=== PATIENT | male | born 1985 | race Caucasian/White ===

== ENCOUNTER 2016-07-13 14:58 | Emergency (ER) | payer BC ==
[2016-07-13] MEDS ORDERED: BUPIVACAINE HCL/PF 5 MG/ML 10ML VIAL IV ONE (15:06)
[2016-07-13] MEDS ORDERED: BUPIVACAINE HCL/PF 5 MG/ML 10ML VIAL IJ ONE (15:07)
--- NOTE | 2016-07-13 16:12 | ED Physician Documentation ---
Upper Extremity Injury - HISTORIAN Historian: patient - HPI Stated Complaint: crush injury to right index finger Chief Complaint: Hand Injury Additional Information: Hand caught between [place]. Last tetanus within 5 years. Onset: just prior to arrival - ROS CONST: no problems - PAST HX Past History: none, Rt handed Allergies/Adverse Reactions: Allergies Allergy/AdvReac Type Severity Reaction Status Date / Time No Known Allergies Allergy Verified 07/13/16 15:51 Home Medications: Ambulatory Orders Medication Instructions Recorded Cephalexin [Keflex] 500 mg PO Q6H #40 capsule 07/13/16 - SOCIAL HX Smoking History: non-smoker - FAMILY HX Family History: no significant history - REVIEWED ASSESSMENTS Nursing Assessment Reviewed: Yes Vitals Reviewed: Yes Procedures Wound Location: upper extremity (right 2nd fingerr) Wound Length: 2 Wound's Depth, Shape: superficial, contused tissue Wound Explored: clean Irrigated w/ Saline (ccs): 800 Betadine Prep?: No (chlorhexadine) Anesthesia: 0.5% Sensorcaine Wound Repaired With: sutures Suture Size/Type: 3:0 Number of Sutures: 3 Layer Closure?: No Sterile Dressing Applied?: Yes Splint Applied?: Yes Sling Applied?: Yes Progress - Progress Progress: 3 views of the right hand History: RT HAND, SMASH INJURY TO 2ND FINGER TODAY, AP VIEW COMPLETED IN PLACE OF A PA VIEW DUE TO PATIENTS INABILITY TO LAY HAND FLAT (Hx) / 2ND FINER PROXIMAL PHALANX INJURY Findings: No comparison studies Several artifacts are noted over the study No evidence of acute fracture or dislocation of the right hand. Laceration is noted along the radial aspect of the right 2nd digit. Surgical screws are noted at the 5th finger proximal phalynx Impression: No evidence of acute fracture or dislocation of the right hand. Laceration proximal phalynx right 2nd digit. Electronically signed on July 13, 2016 3:47:31 PM CDT by: Julia Cordova ED Results Lab/Radiology - Orders Orders: ED Orders Category Date Time Status Apply occlusive dressing D Care 07/13/16 16:19 Active Finger Splint 1T Care 07/13/16 16:19 Active Sling to Affected Extremity 1T Care 07/13/16 16:19 Active HAND XRAY [HAND 3 VIEWS OR MORE] [RAD] Stat Exams 07/13/16 Ordered Bupivacaine HCl/Pf [Marcaine 0.5%] Med 07/13/16 15:07 Discontinued 50 mg IJ NOW ONE Bupivacaine HCl/Pf [Marcaine 0.5%] Med 07/13/16 15:06 Discontinued 50 mg IV .STK-MED ONE Neomycin Davidson/Bacitrac Zn/Poly [Triple Antibiotic Med 07/13/16 16:19 Discontinued Ointment] 1 each TP NOW ONE Upper Extremity Injury Physic - Physical Exam General Appearance: alert, moderate distress Hand: laceration (just distal to right 2nd MCP, avulsion injury to volar surface of proximal phalanx, 2 cm in length. Avulsion of skin lateral ly, proximal proximal phalanx 2nd right finger. ), limited ROM (2/2 pain) Wrist: normal inspection, no evidence of injury, normal ROM Elbow/Forearm: no evidence of injury, normal ROM Neuro/Vascular/Tendon: no vascular compromise, motor nml, sensation nml Skin: warm,dry (except as above) Head/ENT: nml inspection Resp/CVS: no resp. distress Discharge Clincal Impression: Finger laceration Qualifiers: Encounter type: initial encounter Qualified Code(s): S61.219A - Laceration without foreign body of unspecified finger without damage to nail, initial encounter Additional Instructions: Keep the hand elevated to the level of your heart for 3 days. Leave the dressing on for two days if possible. After that, apply antibiotic ointment and a dressing. Ask your provider to remove the stitches in 7-10 days. Take all the antibiotics as prescribed until they are completely gone. Return to the ER immediately if the finger seems to be infected. Home Medications: Ambulatory Orders Cephalexin [Keflex] 500 mg PO Q6H #40 capsule 07/13/16 Condition: Fair Disposition: 01 HOME, SELF-CARE Decision to Admit: NO Decision Time: 16:30
[2016-07-13] MEDS ORDERED: NEOMYCIN SU/BACITRAC ZN/POLY 1 EACH OINT.PACK TP ONE (16:19)
[2016-07-13 16:58] VITALS: BP 130/78
--- NOTE | 2016-07-13 22:52 | Diagnostic Imaging Report ---
LIAT FIGUEROA [facility] [id number] [facility] [address] [place] [address]. [id number] Report Submission Date: July 13, 2016 3:47:31 PM CDT Patient Study Name: MARY BETH PINA Date: July 13, 2016 3:24:25 PM CDT Modality Type: CR Gender: M Description: UPPER EXTREMITY : 81 Institution: [facility] Physician: LIAT FIGUEROA 3 views of the right hand History: RT HAND, SMASH INJURY TO 2ND FINGER TODAY, AP VIEW COMPLETED IN PLACE OF A PA VIEW DUE TO PATIENTS INABILITY TO LAY HAND FLAT (Hx) / 2ND FINER PROXIMAL PHALANX INJURY Findings: No comparison studies Several artifacts are noted over the study No evidence of acute fracture or dislocation of the right hand. Laceration is noted along the radial aspect of the right 2nd digit. Surgical screws are noted at the 5th finger proximal phalynx Impression: No evidence of acute fracture or dislocation of the right hand. Laceration proximal phalynx right 2nd digit. Electronically signed on July 13, 2016 3:47:31 PM CDT by: Julia TURNER
== END 2016-07-13 16:57 | disposition home or self-care (01) ==
LOC: ED 14:58
DX: S61.219A Laceration without foreign body of unspecified finger without damage to nail, initial encounter (principal); X58.XXXA Exposure to other specified factors, initial encounter; Y93.9 Activity, unspecified; Y99.9 Unspecified external cause status
CPT/HCPCS: 73130; J3490; 12002; 99283; J7030